=== PATIENT | female | born 1965 | race American Indian/Alaskan Native ===

== ENCOUNTER 2016-10-01 11:17 | Emergency (ER) | payer OTHER ==
[2016-10-01 13:30] LABS: Basophils % (Auto) 0.3 % (0.0-1.8); Eosinophils % (Auto) 0.5 % (0.0-4.3); Hematocrit 39.5 % (30.3-42.9); Hemoglobin 12.6 gm/dl (10.1-14.3); Mean Corpuscular HGB Conc 32 % (30-34); Mean Corpuscular Hemoglobin 26 pg (28-32); Mean Corpuscular Volume 82 fl (79-97); Platelet Count 292 K/mm3 (140-440); Red Blood Count 4.82 M/mm3 (3.65-5.03); Red Cell Distribution Width 14.7 % (13.2-15.2); White Blood Count 6.3 K/mm3 (4.5-11.0)
[2016-10-01 13:34] LABS: Anion Gap 17 mmol/L; BUN/Creatinine Ratio 12.85; Blood Urea Nitrogen 9 mg/dL (7-17); Calcium 8.6 mg/dL (8.4-10.2); Carbon Dioxide 25 mmol/L (22-30); Chloride 101.1 mmol/L (98-107); Creatine Kinase 162 units/L (30-135); Glucose 150 mg/dL (65-100); Potassium 3.8 mmol/L (3.6-5.0); Sodium 139 mmol/L (137-145)
[2016-10-01 13:57] LABS: Bilirubin,Urine NEG (Negative); Blood,Urine NEG (Negative); Ketones,Urine NEG (Negative); Leukocyte Esterase,Urine NEG (Negative); Mucus,Urine FEW /HPF; Nitrite,Urine NEG (Negative); Protein,Urine <15 mg/dL mg/dL (Negative); Urobilinogen,Urine < 2.0 mg/dL (<2.0)
[2016-10-01 13:59] LABS: RBC,Urine < 1.0 /HPF (0.0-6.0); WBC,Urine < 1.0 /HPF (0.0-6.0)
[2016-10-01] MEDS ORDERED: ANTIVERT PO ONE (23:00)
[2016-10-01] MEDS ORDERED: ZOFRAN IV ONE (23:00)
--- NOTE | 2016-10-01 23:08 | Emergency Department Report ---
HPI - General Chief Complaint: Dizziness Time Seen by Provider: 10/01/16 22:47 - HPI HPI: Room 23 The patient is a 51-year-old female presenting with a chief complaint of vertigo. The patient states she developed dizziness yesterday has been intermittent. The patient states he does feel as though the room is spinning. The patient admits turning her head or movement exacerbates her symptoms. Patient denies headache or pain of any type. Patient denies any preceding trauma or fever. Patient denies any preceding URI symptoms. The patient developed nausea vomiting today Location: Head Duration: Intermittent since yesterday Quality: Vertigo Severity: Moderate Modifying factors: [see above] Context: [see above] Mode of transportation: [not driving] ED Past Medical Hx - Past Medical History Hx Diabetes: (PREDIABETIC) - Surgical History Hx Cholecystectomy: Yes Additional Surgical History: MASS REMOVED RIGHT OVARY. TUBAL LIGATION - Family History Family history: no significant - Social History Smoking Status: Never Smoker Substance Use Type: None - Medications Home Medications: Home Medications Medication Instructions Recorded Confirmed Last Taken Type Meclizine [Antivert] 25 mg PO TID PRN #20 tablet 10/02/16 Unknown Rx Ondansetron [Zofran ODT TAB] 8 mg PO Q8HR #20 tab.rapdis 10/02/16 Unknown Rx ED Review of Systems ROS: Stated complaint: NAUSEA/DIZZY Other details as noted in HPI Comment: All other systems reviewed and negative Constitutional: denies: chills, fever Eyes: denies: eye pain, eye discharge, vision change ENT: denies: ear pain, throat pain Respiratory: denies: cough, shortness of breath, wheezing Cardiovascular: denies: chest pain, palpitations Endocrine: no symptoms reported Gastrointestinal: nausea, vomiting. denies: abdominal pain, diarrhea Genitourinary: denies: urgency, dysuria, discharge Musculoskeletal: denies: back pain, joint swelling, arthralgia Skin: denies: rash, lesions Neurological: vertigo. denies: headache Psychiatric: denies: anxiety, depression Hematological/Lymphatic: denies: easy bleeding, easy bruising Physical Exam - Physical Exam Vital Signs: Vital Signs 10/01/16 12:23 Temperature 97.4 F L Pulse Rate 70 Respiratory 18 Rate Blood Pressure 127/59 O2 Sat by Pulse 100 Oximetry Physical Exam: GENERAL: The patient is well-developed well-nourished female leaning over stretcher actively vomiting. [] HEENT: Normocephalic. Atraumatic. Extraocular motions are intact. Patient has moist mucous membranes. No nystagmus. TMs clear bilaterally NECK: Supple. No meningitic signs are noted. Trachea midline. No carotid bruits bilaterally CHEST/LUNGS: Clear to auscultation. There is no respiratory distress noted. HEART/CARDIOVASCULAR: Regular. There is no tachycardia. There is no gallop rub or murmur. ABDOMEN: Abdomen is soft, nontender. Patient has normal bowel sounds. There is no abdominal distention. SKIN: There is no rash. There is no edema. There is no diaphoresis. NEURO: The patient is awake, alert, and oriented. The patient is cooperative. The patient has no focal neurologic deficits. The patient has normal speech. Cranial nerves II through XII grossly intact, no drift, furniture builder 5+/5 bilaterally. No dysmetria noted with [id number] on the right. Occasional dysmetria noted with finger to nose on the left but I suspect some of this is due to the patient rushing as there is no dysmetria 80% of the time MUSCULOSKELETAL: There is no evidence of acute injury. ED Course Vital Signs 10/01/16 12:23 Temperature 97.4 F L Pulse Rate 70 Respiratory 18 Rate Blood Pressure 127/59 O2 Sat by Pulse 100 Oximetry - Reevaluation(s) Reevaluation #1: 10/02/16 00:49 Patient resting comfortably states she feels better. ED Medical Decision Making - Lab Data Result diagrams: 10/01/16 13:02 10/01/16 13:02 Laboratory Tests 10/01/16 10/01/16 10/01/16 13:02 13:02 13:02 WBC 6.3 RBC 4.82 Hgb 12.6 Hct 39.5 MCV 82 MCH 26 L MCHC 32 RDW 14.7 Plt Count 292 Lymph % (Auto) 24.7 [place] % (Auto) 4.7 Eos % (Auto) 0.5 Baso % (Auto) 0.3 Lymph # 1.6 [place] # 0.3 Eos # 0.0 Baso # 0.0 Seg Neutrophils % 69.8 Seg Neutrophils # 4.4 Sodium 139 Potassium 3.8 Chloride 101.1 Carbon Dioxide 25 Anion Gap 17 BUN 9 Creatinine 0.7 Estimated GFR > 60 BUN/Creatinine Ratio 12.85 Glucose 150 H Calcium 8.6 Total Creatine Kinase 162 H Troponin T < 0.010 Urine Color Urine Turbidity Urine pH Ur Specific [place] Urine Protein Urine Glucose (UA) Urine Ketones Urine Blood Urine Nitrite Urine Bilirubin Urine Urobilinogen Ur Leukocyte Esterase Urine WBC (Auto) Urine RBC (Auto) Urine Mucus 10/01/16 13:41 WBC RBC Hgb Hct MCV MCH MCHC RDW Plt Count Lymph % (Auto) [place] % (Auto) Eos % (Auto) Baso % (Auto) Lymph # [place] # Eos # Baso # Seg Neutrophils % Seg Neutrophils # Sodium Potassium Chloride Carbon Dioxide Anion Gap BUN Creatinine Estimated GFR BUN/Creatinine Ratio Glucose Calcium Total Creatine Kinase Troponin T Urine Color Straw Urine Turbidity Clear Urine pH 8.0 H Ur Specific [place] 1.012 Urine Protein <15 mg/dl Urine Glucose (UA) 50 Urine Ketones Neg Urine Blood Neg Urine Nitrite Neg Urine Bilirubin Neg Urine Urobilinogen < 2.0 Ur Leukocyte Esterase Neg Urine WBC (Auto) < 1.0 Urine RBC (Auto) < 1.0 Urine Mucus Few - EKG Data -: EKG Interpreted by [place] EKG shows normal: sinus rhythm Rate: normal - EKG Data When compared to previous EKG there are: previous EKG unavailable Interpretation: other (no ischemic changes seen) - Radiology Data Radiology results: report reviewed (CT head), image reviewed (CT head) - Differential Diagnosis central vertigo, peripheral vertigo, ICH, cerebellar mass Critical care attestation.: If time is entered above; I have spent that time in minutes in the direct care of this critically ill patient, excluding procedure time. ED Disposition Clinical Impression: Vertigo Disposition: DC-01 TO HOME OR SELFCARE Is pt being admited?: No Does the pt Need Aspirin: No Condition: Stable Instructions: Vertigo (ED) Additional Instructions: Return to the emergency department immediately should you develop worsening symptoms, fever, inability to tolerate food or liquid or any other concerns. Prescriptions: Meclizine [Antivert] 25 mg PO TID PRN #20 tablet PRN Reason: Vertigo Ondansetron [Zofran ODT TAB] 8 mg PO Q8HR #20 tab.rapdis Referrals: PRIMARY CARE, [Primary Care Provider] - 3-5 Days KAE SUE MD [Staff Physician] - [facility] (Dr. Sue is a neurologist. Please follow up with him for further evaluation) JOHANNE CABAN MD [Staff Physician] - 3-5 Days (Dr. Caban is an photographic spotter (ear, nose and throat doctor). Please follow up with her for further evaluation) Time of Disposition: 01:26
[2016-10-02] MEDS ORDERED: REGLAN ONE (00:02)
[2016-10-02] MEDS ORDERED: REGLAN IV ONE (00:10)
--- NOTE | 2016-10-02 01:24 | Cat Scan Report ---
FINAL REPORT PROCEDURE: CT HEAD/BRAIN WO CON TECHNIQUE: Computerized tomography of the head was performed without contrast material. HISTORY: vertigo COMPARISON: No prior studies are available for comparison. FINDINGS: Skull and scalp: Normal. Paranasal sinuses: Normal. Ventricles and subarachnoid spaces: Normal. Cerebrum: No evidence of hemorrhage, acute infarction or mass . Cerebellum and brainstem: No evidence of hemorrhage, acute infarction or mass. Vasculature: Normal. Comments: None. IMPRESSION: Normal Examination
[2016-10-02 01:40] VITALS: BP 128/64
== END 2016-10-02 01:40 | disposition home or self-care (01) ==
LOC: ED 11:17
DX: R42 Dizziness and giddiness (principal); E11.9 Type 2 diabetes mellitus without complications
CPT/HCPCS: 36415; 70450; 80048; 81001; 82550; 84484; 85025; 93005; 93010; 96374; 96375; 99284; J2405; J2765